=== PATIENT | male | born 1995 | race Caucasian/White ===

== ENCOUNTER → 2016-12-24 | Outpatient (CLI) | payer BC ==
--- NOTE | 2016-12-24 14:08 | DIAGNOSTIC IMAGING REPORT ---
RIGHT HAND MIN 3 VIEWS CLINICAL HISTORY: Right hand pain HISTORY OF FIFTH METACARPAL FRACTURE COMPARISON: None. DISCUSSION: There is a fifth metacarpal neck fracture which appears acute/subacute. There is rectus there is 50 degrees of angulation at the fracture site. IMPRESSION: Angulated fifth metacarpal neck fracture. Electronically signed by: Blu Trevino M.D. 12/24/2016 2:06 PM Dictated Date/Time: 12/24/2016 2:05 PM
== END | disposition home or self-care (01) ==
LOC: C.RDSM 13:45
PROVIDERS: ATTEND Physician Assistant
DX: M79.641 Pain in right hand (principal)

== ENCOUNTER → 2017-01-05 | Outpatient (CLI) | payer BC ==
--- NOTE | 2017-01-05 12:58 | DIAGNOSTIC IMAGING REPORT ---
RIGHT HAND MIN 3 VIEWS CLINICAL HISTORY: RIGHT HAND FRACTURE Right COMPARISON STUDY: Right hand 12/24/2016. FINDINGS: There is callus formation surrounding the fifth metatarsal neck fracture consistent with partial healing. The alignment remains unchanged. There is persistent mild impaction and mild radial angulation. Soft tissue swelling along the ulnar side of the hand persist. No dislocation. IMPRESSION: No change in alignment of the mildly angulated and impacted right fifth metacarpal neck fracture. However, there is interval healing present. Electronically signed by: Maxim Ovalle M.D. 01/05/2017 12:57 PM Dictated Date/Time: 01/05/2017 12:56 PM
== END | disposition home or self-care (01) ==
LOC: C.RDSM 13:00
PROVIDERS: ATTEND Physician Assistant
DX: S62.336D Displaced fracture of neck of fifth metacarpal bone, right hand, subsequent encounter for fracture with routine healing (principal); X58.XXXD Exposure to other specified factors, subsequent encounter

== ENCOUNTER → 2017-02-02 | Outpatient (CLI) | payer BC ==
--- NOTE | 2017-02-02 12:51 | DIAGNOSTIC IMAGING REPORT ---
RIGHT HAND MIN 3 VIEWS CLINICAL HISTORY: RIGHT HAND PAIN Right trauma. Pain. COMPARISON: 01/05/2017 DISCUSSION: Fracture distal fifth metacarpal with moderate angulation. No change in appearance compared to the prior study. No evidence for significant callus formation. I'm remains anatomic. No evidence of dislocation. There is no evidence for soft tissue swelling. IMPRESSION: Fracture distal aspect fifth metacarpal showing no change in appearance compared to the prior study. Interval healing, is considered minimal Electronically signed by: Reynaldo Louis M.D. 02/02/2017 12:49 PM Dictated Date/Time: 02/02/2017 12:48 PM
== END | disposition home or self-care (01) ==
LOC: C.RDSM 13:59
PROVIDERS: ATTEND Physician Assistant
DX: M79.641 Pain in right hand (principal)